=== PATIENT | female | born 2005 ===

== ENCOUNTER 2023-10-10 17:25 | Emergency (ER) | payer SELFPAY ==
[2023-10-10] MEDS ORDERED: SODIUM CHLORIDE 0.9% 1,000 ML BAG ONE (19:17)
--- NOTE | 2023-11-05 11:31 | XR ---
Patient: Fanny Curtis Ordering Physician: Unknown, Unknown ID: [id number] Phone, Pager: Phone : N/A Pager: N/A : 2005 Age/Gender: 18Y, F Primary Location: N/A Procedure: XR CHEST 2 V Study Date: 10/10/2023 8:00:50 PM EXAMINATION TYPE: XR chest 2V DATE OF EXAM: 10/10/2023 COMPARISON: NONE HISTORY: Chest pain TECHNIQUE: Frontal and lateral views of the chest are obtained. FINDINGS: There is no focal air space opacity. No evidence for pneumothorax. No pleural effusion. The cardiac silhouette size is within normal limits. The osseous structures are grossly intact. IMPRESSION: 1. No acute cardiopulmonary process.
== END 2023-10-10 21:15 | disposition home or self-care (01) ==
LOC: EC 17:25
DX: R07.81 Pleurodynia (principal)
CPT/HCPCS: 71046; 93005; 96360; 99285